=== PATIENT | male | born 1960 | race Caucasian/White ===

== ENCOUNTER 2017-01-08 21:24 | Emergency (ER) | payer SELFPAY ==
[~2017-01-08] VITALS: Ht 180.3 cm; Wt 95.0 kg
[2017-01-08 21:26] VITALS: BP 117/76; PULSE 108; RESP 18; TEMP 98; O2SAT 96
--- NOTE | 2017-01-08 23:18 | PD ---
HPI Chief Complaint: Pain: Acute or Chronic Time Seen by Provider: 23:12 Travel History International Travel<30 days: No Contact w/Intl Traveler<30days: No Traveled to known affect area: No History of Present Illness HPI 56-year-old white male presents to emergency department accompanied by a friend for evaluation of lower leg weakness and cramping. He states that they moved from [facility] to [facility] back in October. They're currently homeless. They rent hotel rooms when the have the money. They can't outside when they do not. They've been camping for the last 2 weeks during . The patient states that he has a history of neuropathy, DVT with PE , COPD with sleep apnea, and chronic arthritis. He states that he's had increasing cramping and pain in his lower legs as well as his back. He is had decreased mobility he's been feeling more unstable on his feet than usual. He' s had increased tingling sensation and pain. He denies any direct trauma. He states that he's taken Xarelto daily for his DVT. He also takes gabapentin 300 mg 3 times a day for his neuropathy. Patient denies any fever or chills. No ear pain or sore throat. No chest pain or shortness of breath. No nausea vomiting. No abdominal pain. No urine symptoms. He denies tobacco. He does drink alcohol on occasion. He states that he is working on a disability. [facility] Past Medical History Narrative Medical High triglycerides, DVT with PE, neuropathy, COPD and sleep apnea, right tib- fib fracture, chronic arthritis and gait instability, hydrocephalus Hx Anticoagulant Therapy: Yes (DVT>XARELTO) Cardiovascular Problems: Yes (HTN) Tetanus Vaccination: < 5 Years Past Surgical History Narrative Surgical [employer] shunt, ORIF right tib-fib Social History Alcohol Use: Yes Tobacco Use: No Substance Use: No Allergies-Medications (Allergen,Severity, Reaction): Coded Allergies: Tramadol (Verified Allergy, Mild, MAKES HIM ITCH, 01/08/17) Review of Systems Except as stated in HPI: all other systems reviewed are Neg Physical Exam Narrative GENERAL: Well-developed, well-nourished in no apparent distress. Nontoxic appearing. Patient is somewhat disheveled. His dark ceballos skin as if he has been out with his son for long period time. HEAD: Normocephalic, atraumatic. [employer] shunt down the left neck into the chest EYES: Pupils equal round and reactive. Extraocular motions intact. No scleral icterus. No injection or drainage. ENT: Nose clear. Throat without erythema, tonsillar hypertrophy or exudate. Uvula midline. Airway patent. NECK: Trachea midline. Supple, nontender, moves head freely. No central bony tenderness or spasm. CARDIOVASCULAR: Regular rate and rhythm without murmurs, gallops, or rubs. RESPIRATORY: Clear to auscultation. Breath sounds equal bilaterally. No wheezes , rales, or rhonchi. GASTROINTESTINAL: Abdomen soft, non-tender, nondistended. No hepato-splenomegaly , or palpable masses. No guarding. EXTREMITIES: No clubbing, cyanosis, +1 pitting pedal edema. Right ankle and lower leg are significantly larger than the left but this is due to his prior fracture tib-fib. This does not appear to be acute. There is no calf tenderness. He has intact pulses. Patient has tinea changes in both feet. BACK: Nontender without deformity. No flank tenderness. NEUROLOGICAL: Awake, alert and oriented x 3 .Cranial nerves grossly intact. Patient walks with a wide base gait and is somewhat off balance and ataxic. He states that this is not uncommon for him. Normal speech. Data Data Last Documented VS Vital Signs Date Time Temp Pulse Resp B/P Pulse Ox O2 Delivery O2 Flow Rate FiO2 01/08/17 21:26 98.0 108 18 117/76 96 Orders Complete Blood Count With Diff (01/08/17 23:11) Comprehensive Metabolic Panel (01/08/17 23:11) C-Reactive Protein (Crp) (01/08/17 23:11) Lactic Acid (01/08/17 23:11) Labs Laboratory Tests Test 01/08/17 23:45 White Blood Count 7.6 TH/MM3 Red Blood Count 4.60 MIL/MM3 Hemoglobin 14.3 GM/DL Hematocrit 41.4 % Mean Corpuscular Volume 89.8 FL Mean Corpuscular Hemoglobin 31.0 PG Mean Corpuscular Hemoglobin 34.5 % Concent Red Cell Distribution Width 13.2 % Platelet Count 244 TH/MM3 Mean Platelet Volume 8.1 FL Neutrophils (%) (Auto) 57.1 % Lymphocytes (%) (Auto) 26.7 % Monocytes (%) (Auto) 11.9 % Eosinophils (%) (Auto) 3.0 % Basophils (%) (Auto) 1.3 % Neutrophils # (Auto) 4.4 TH/MM3 Lymphocytes # (Auto) 2.0 TH/MM3 Monocytes # (Auto) 0.9 TH/MM3 Eosinophils # (Auto) 0.2 TH/MM3 Basophils # (Auto) 0.1 TH/MM3 CBC Comment DIFF FINAL Differential Comment Sodium Level 139 MEQ/L Potassium Level 4.2 MEQ/L Chloride Level 104 MEQ/L Carbon Dioxide Level 26.0 MEQ/L Anion Gap 9 MEQ/L Blood Urea Nitrogen 23 MG/DL Creatinine 1.28 MG/DL Estimat Glomerular Filtration 58 ML/MIN Rate Random Glucose 93 MG/DL Lactic Acid Level 1.1 mmol/L Calcium Level 9.3 MG/DL Total Bilirubin 0.6 MG/DL Aspartate Amino Transf 20 U/L (AST/SGOT) Alanine Aminotransferase 23 U/L (ALT/SGPT) Alkaline Phosphatase 54 U/L C-Reactive Protein 3.02 MG/DL Total Protein 7.9 GM/DL Albumin 3.6 GM/DL [facility] Medical Decision Making Medical Screen Exam Complete: Yes Emergency Medical Condition: Yes Medical Record Reviewed: Yes Interpretation(s) Laboratory Tests Test 01/08/17 23:45 White Blood Count 7.6 TH/MM3 Red Blood Count 4.60 MIL/MM3 Hemoglobin 14.3 GM/DL Hematocrit 41.4 % Mean Corpuscular Volume 89.8 FL Mean Corpuscular Hemoglobin 31.0 PG Mean Corpuscular Hemoglobin 34.5 % Concent Red Cell Distribution Width 13.2 % Platelet Count 244 TH/MM3 Mean Platelet Volume 8.1 FL Neutrophils (%) (Auto) 57.1 % Lymphocytes (%) (Auto) 26.7 % Monocytes (%) (Auto) 11.9 % Eosinophils (%) (Auto) 3.0 % Basophils (%) (Auto) 1.3 % Neutrophils # (Auto) 4.4 TH/MM3 Lymphocytes # (Auto) 2.0 TH/MM3 Monocytes # (Auto) 0.9 TH/MM3 Eosinophils # (Auto) 0.2 TH/MM3 Basophils # (Auto) 0.1 TH/MM3 CBC Comment DIFF FINAL Differential Comment Sodium Level 139 MEQ/L Potassium Level 4.2 MEQ/L Chloride Level 104 MEQ/L Carbon Dioxide Level 26.0 MEQ/L Anion Gap 9 MEQ/L Blood Urea Nitrogen 23 MG/DL Creatinine 1.28 MG/DL Estimat Glomerular Filtration 58 ML/MIN Rate Random Glucose 93 MG/DL Lactic Acid Level 1.1 mmol/L Calcium Level 9.3 MG/DL Total Bilirubin 0.6 MG/DL Aspartate Amino Transf 20 U/L (AST/SGOT) Alanine Aminotransferase 23 U/L (ALT/SGPT) Alkaline Phosphatase 54 U/L C-Reactive Protein 3.02 MG/DL Total Protein 7.9 GM/DL Albumin 3.6 GM/DL Differential Diagnosis Differential diagnosis: Homelessness, electrolyte abnormality, neuropathy, infection, neuromuscular disorder Narrative Course The patient's evaluation here shows no emergent medical condition. I've explained to the patient that he needs to qualify for patient assistance. He is encouraged to get a local addressed and follow-up with a primary care doctor as well as a neurologist. Due to his chronic medical conditions either one of these things can be the root cause of his problems. This is chronic weakness, chronic gait disturbance Diagnosis Primary Impression: chronic weakness Additional Impression: chronic gait disturbance Patient Instructions: General Instructions Additional Instructions: Rest. Tylenol for pain. Multivitamin daily. Follow-up with patient assistance. Follow-up with a primary care doctor as well as a neurologist within 1 week for recheck. Return to the ER for emergencies. Disposition: 01 DISCHARGE HOME Condition: Stable Bakari Graham Jan 08, 2017 23:18
[2017-01-08 23:59] LABS: AUTOMATED NEUTROPHIL # 4.4 TH/MM3 (1.8-7.7); BASOPHIL # 0.1 TH/MM3 (0-0.2); BASOPHIL % 1.3 % (0.0-2.0); EOSINOPHIL # 0.2 TH/MM3 (0-0.4); HEMATOCRIT 41.4 % (39.0-51.0); HEMO FLAGS DIFF FINAL; LYMPH % 26.7 % (9.0-44.0); MEAN CELL VOLUME 89.8 FL (80.0-100.0); MEAN CORPUSCULAR HGB CONC 34.5 % (32.0-36.0); MONO % 11.9 % (0.0-8.0); NEUT % 57.1 % (16.0-70.0); PLATELET COUNT 244 TH/MM3 (150-450); RED CELL DISTRIBUTION WIDTH 13.2 % (11.6-17.2); WHITE BLOOD COUNT 7.6 TH/MM3 (4.0-11.0)
[2017-01-09 00:17] LABS: ALKALINE PHOSPHATASE 54 U/L (45-117); TOTAL BILIRUBIN ADULT 0.6 MG/DL (0.2-1.0)
[2017-01-09 00:19] LABS: ALT (GPT) 23 U/L (12-78); ANION GAP 9 MEQ/L (5-15); AST (GOT) 20 U/L (15-37); BLOOD UREA NITROGEN 23 MG/DL (7-18); CHLORIDE 104 MEQ/L (98-107); GLOMERULAR FILTRATION RATE 58 ML/MIN (>89); POTASSIUM 4.2 MEQ/L (3.5-5.1); SODIUM (NA) 139 MEQ/L (136-145)
== END 2017-01-09 01:05 | disposition home or self-care (01) ==
LOC: NEPB 21:24
DX: R53.1 Weakness (principal); R25.2 Cramp and spasm; R26.81 Unsteadiness on feet; I48.91 Unspecified atrial fibrillation; J44.9 Chronic obstructive pulmonary disease, unspecified; I10 Essential (primary) hypertension; G62.9 Polyneuropathy, unspecified; Z79.01 Long term (current) use of anticoagulants
CPT/HCPCS: 80053; 83605; 85025; 86140; 99283